=== PATIENT | female | born 1995 | race Caucasian/White ===

== ENCOUNTER 2018-04-01 13:35 | Emergency (ER) | payer SELFPAY ==
[~2018-04-01] VITALS: Ht 157.5 cm; Wt 63.5 kg
[~2018-04-01 13:35] MED LIST: AGM875T PO; CEPH500T PO
[2018-04-01] MEDS ORDERED: KETOROLAC 60 MG/2 ML VIAL IM ONE (14:00)
[2018-04-01] MEDS ORDERED: ORPHENADRINE 60 MG/2 ML (NORFLEX) AMP IM ONE (14:00)
--- NOTE | 2018-04-01 14:03 | ED Hip Pain/Injury ---
General Chief Complaint: Hip/Pelvic Problems Stated Complaint: LT HIP PAIN Nursing Triage Note: PT REPORTS LEFT HIP PAIN FOR SEVERAL MONTHS BUT GOT SEVERE THIS AM AND PAIN HAS NOT WENT AWAY YET. HAS NOT SEEN ANYBODY FOR PAIN. Source: patient Exam Limitations: no limitations History of Present Illness Date Seen by Provider: Apr 01, 2018 Time Seen by Provider: 14:00 Initial Comments 23-year-old female who presents to the emergency room with complaints of left hip pain for 3-4 months that has progressively gotten worse and caused her hip to go out while at work today. She reports she did fall to the ground but denies any other injuries from the fall. She cannot recall an initial injury to the left hip. Reports she has not been evaluated by primary care provider for this issue. Timing/Duration: this morning Location: hip (L) Method of Injury: fell Associated Symptoms: denies symptoms Allergies and Home Medications Allergies Coded Allergies: No Known Drug Allergies (Unverified , 02/11/12) Home Medications Cephalexin 500 Mg Tablet, 500 MG PO TID Prescribed by: DARLIN CHU on 11/10/14 1441 Patient Home Medication List Home Medication List Reviewed: Yes Review of Systems Constitutional: no symptoms reported, see HPI Musculoskeletal: see HPI, joint pain (left hip) All Other Systems Reviewed Negative Unless Noted: Yes Past Gnfeuvk-Xbkego-Xsmxcb Hx Past Med/Social Hx: Reviewed Nursing Past Med/Soc Hx Patient Social History Alcohol Use: Regular Use Alcohol Beverage of Choice: Beer Recreational Drug Use: Yes Drug of Choice: MARIJUANA Smoking Status: Never a Smoker Recent Foreign Travel: No Contact w/Someone Who Travel: No Recent Infectious Disease Expo: No Recent Hopitalizations: No Physical Abuse: No Sexual Abuse: No Immunizations Up To Date Tetanus Booster (TDap): Unknown PED Vaccines UTD: Yes Seasonal Allergies Seasonal Allergies: No Past Medical History Surgeries: Yes (possible cystoscopy as small child) Respiratory: No Cardiac: No Neurological: No Reproductive Disorders: No Sexually Transmitted Disease: No HIV/AIDS: No Gastrointestinal: No Musculoskeletal: No Endocrine: No Cancer: No Psychosocial: No Integumentary: No Blood Disorders: No Adverse Reaction/Blood Tranf: No Family Medical History Reviewed Nursing Family Hx No Pertinent Family Hx Physical Exam Vital Signs Vital Signs - First Documented 04/01/18 13:48 Temp 97.1 Pulse 82 Resp 14 B/P (MAP) 120/78 (92) Pulse Ox 98 Capillary Refill : Less Than 3 Seconds Height, Weight, BMI Height: 5'2.00" Weight: 140lbs. oz. 63.213685if; BMI Method:Stated General Appearance: No Apparent Distress, WD/WN Cardiovascular: Regular Rate, Rhythm, No Edema, No Gallop, No JVD, No Murmur, Normal Peripheral Pulses Respiratory: Chest Non Tender, Lungs Clear, Normal Breath Sounds, No Accessory Muscle Use, No Respiratory Distress, Accessory Muscle Use Extremity: Normal Capillary Refill, Normal Inspection, Non Tender, No Calf Tenderness, No Pedal Edema, Calf Tenderness, Other (increased pain with range of motion of the left hip.) Neurologic/Psychiatric: Alert, Oriented x3, Normal Mood/Affect Skin: Normal Color, Warm/Dry Progress/Results/Core Measures Results/Orders My Orders Orders - SANDRA DE JESUS Ketorolac Injection (Toradol Injection) (04/01/18 14:00) Orphenadrine Injection (Norflex Injectio (04/01/18 14:00) Hip, Left, 2 Views (04/01/18 13:58) Medications Given in ED Current Medications Medications Dose Ordered Sig/Glen Route Start Time Stop Time Status Last Admin Dose Admin Ketorolac Tromethamine 60 mg ONCE ONCE IM 04/01/18 14:00 04/01/18 14:01 DC 04/01/18 14:14 60 MG Orphenadrine Citrate 60 mg ONCE ONCE IM 04/01/18 14:00 04/01/18 14:01 DC 04/01/18 14:14 60 MG Vital Signs/I&O 04/01/18 13:48 Temp 97.1 Pulse 82 Resp 14 B/P (MAP) 120/78 (92) Pulse Ox 98 Blood Pressure Mean: 92 Departure Impression Primary Impression: Left hip pain Disposition: HOME, SELF-CARE Condition: Stable/Unchanged Departure-Patient Inst. Decision time for Depature: 14:32 Referrals: MARU WORRELL JACQUELINE S DO (PCP/Family) Primary Care Physician Patient Instructions: Hip Pain (DC) Add. Discharge Instructions: Take medications as directed. You may alternate ice and heat to the sore areas at 20 minute intervals. Tylenol and ibuprofen as directed by the bottle for pain relief. Follow-up with her primary care provider of your choosing within 1 week for recheck. Call today for an appointment time. All discharge instructions reviewed with patient and/or family. Voiced understanding. Scripts Cyclobenzaprine HCl (Cyclobenzaprine HCl) 10 Mg Tablet 10 MG PO Q8H, #14 TAB Prov: SANDRA DE JESUS 04/01/18 SANDRA DE JESUS Apr 01, 2018 14:03
--- NOTE | 2018-04-01 14:24 | Diagnostic Imaging Report ---
PATIENT HISTORY: Left hip pain. TECHNIQUE: Two views of the left hip. COMPARISON: None. FINDINGS: No acute fracture or dislocation is seen in the left hip. The alignment appears normal. The joint spaces are preserved. No cortical erosion is seen. IMPRESSION: No acute or significant osseous abnormality is seen in the left hip. Dictated by: Dictated on workstation # [id number]
[2018-04-01] MEDS ORDERED: CYCL10TA9 PO (14:41)
[2018-04-01 14:44] VITALS: BP 120/78
== END 2018-04-01 14:44 | disposition home or self-care (01) ==
LOC: EDUNIT# 13:35 → ER 13:37
DX: M25.552 Pain in left hip (principal); F12.10 Cannabis abuse, uncomplicated; W19.XXXA Unspecified fall, initial encounter; Y92.59 Other trade areas as the place of occurrence of the external cause; Y99.0 Civilian activity done for income or pay
CPT/HCPCS: 73502

== ENCOUNTER 2019-06-26 18:42 | Emergency (ER) | payer SELFPAY ==
[~2019-06-26] VITALS: Ht 160 cm; Wt 72.7 kg
[~2019-06-26 18:42] MED LIST changes: +CYCL10TA9 PO
--- NOTE | 2019-06-26 18:56 | ED General ---
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 Spontaneous onset. No history of is no cough no shortness of breath no fever. Pain Is worsened by deep breathing No exogenous estrogen use, no unilateral leg swelling no history of DVT. Timing/Duration: 1-3 Hours Severity: Mild Associated Systoms: Denies Symptoms Allergies and Home Medications Allergies Coded Allergies: No Known Drug Allergies (Unverified , 02/11/12) Home Medications Cephalexin 500 Mg Tablet, 500 MG PO TID Prescribed by: DARLIN CHU on 11/10/14 1441 Cyclobenzaprine HCl 10 Mg Tablet, 10 MG PO Q8H Prescribed by: SANDRA DE JESUS on 04/01/18 1441 Patient Home Medication List Home Medication List Reviewed: Yes Review of Systems Review of Systems Constitutional: see HPI EENTM: see HPI Respiratory: see HPI Cardiovascular: no symptoms reported Genitourinary: no symptoms reported Musculoskeletal: no symptoms reported Skin: no symptoms reported Psychiatric/Neurological: No Symptoms Reported Hematologic/Lymphatic: No Symptoms Reported Past Sfclhib-Xzlxqt-Hghspe Hx Patient Social History Alcohol Beverage of Choice: Beer Drug of Choice: MARIJUANA Recent Foreign Travel: No Contact w/Someone Who Travel: No Recent Infectious Disease Expo: No Recent Hopitalizations: No Immunizations Up To Date Tetanus Booster (TDap): Unknown PED Vaccines UTD: Yes Seasonal Allergies Seasonal Allergies: No Past Medical History Surgeries: Yes (possible cystoscopy as small child) Respiratory: No Cardiac: No Neurological: No Reproductive Disorders: No Sexually Transmitted Disease: No HIV/AIDS: No Gastrointestinal: No Musculoskeletal: No Endocrine: No Cancer: No Psychosocial: No Integumentary: No Blood Disorders: No Adverse Reaction/Blood Tranf: No Family Medical History No Pertinent Family Hx Physical Exam Vital Signs Vital Signs - First Documented 06/26/19 06/26/19 18:50 19:16 Temp 36.8 Pulse 66 Resp 18 B/P (MAP) 128/83 (98) Pulse Ox 100 Capillary Refill : Less Than 3 Seconds Height, Weight, BMI Height: 5'2.00" Weight: 140lbs. oz. 63.803170nd; 28.00 BMI Method:Stated General Appearance: No Apparent Distress, WD/WN Eyes: Bilateral Eye Normal Inspection, Bilateral Eye PERRL, Bilateral Eye EOMI Neck: Full Range of Motion, Normal Inspection Respiratory: Normal Breath Sounds, No Accessory Muscle Use, No Respiratory Distress Cardiovascular: Regular Rate, Rhythm, Normal Peripheral Pulses Gastrointestinal: Normal Bowel Sounds, Non Tender, Soft Extremity: Normal Capillary Refill, Normal Inspection Neurologic/Psychiatric: Alert, Oriented x3 Skin: Normal Color, Warm/Dry Progress/Results/Core Measures Suspected Sepsis Recent Fever Within 48 Hours: No Infection Criteria Present: None New/Unexplained Altered Menta: No Sepsis Screen: No Definite Risk SIRS Temperature: Pulse: 66 Respiratory Rate: 18 Blood Pressure 128 /83 Mean: 98 Results/Orders My Orders Orders - CATALINA BRANDON APRN Chest Pa/Lat (2 View) (06/26/19 18:51) Ibuprofen Tablet (Motrin Tablet) (06/26/19 19:00) Medications Given in ED Current Medications Medications Dose Ordered Sig/Glen Route Start Time Stop Time Status Last Admin Dose Admin Ibuprofen 800 mg ONCE ONCE PO 06/26/19 19:00 06/26/19 19:01 DC 06/26/19 19:11 800 MG Vital Signs/I&O 06/26/19 06/26/19 18:50 19:16 Temp 36.8 36.8 Pulse 66 66 Resp 18 18 B/P (MAP) 128/83 (98) 128/83 (98) Pulse Ox 100 Capillary Refill : Less Than 3 Seconds Blood Pressure Mean: 98 Departure Communication (Admissions) She is without tachycardia or hypoxia Impression Primary Impression: Pleuritic chest pain Disposition: HOME, SELF-CARE Condition: Stable Departure-Patient Inst. Decision time for Depature: 18:56 Referrals: NO,LOCAL PHYSICIAN (PCP/Family) Primary Care Physician Patient Instructions: Pleuritic Chest Pain (DC) Add. Discharge Instructions: 1. Return to ER for any concerns 2. Tylenol and ibuprofen for pain control. All discharge instructions reviewed with patient and/or family. Voiced understanding. CATALINA BRANDON APRN June 26, 2019 18:56
[2019-06-26] MEDS ORDERED: IBUPROFEN 800 MG (MOTRIN) TAB PO ONE (19:00)
--- OUTSIDE RECORDS SUMMARY | 2019-06-26 19:07 | XMS REPORT ---
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 Unavailable Unavailable Unavailable Unavailable Allergies Normalized Allergy Reported Date of Reaction(s) Care Provider Facility Allergy Type classification allergen Allergy Onset DA (7 Unclassified No Known Drug 02-11-2012 - no information POONAM MURRY DO Not Available sources.) Allergies (30433) Medications Medication Ingredient Drug Dose Dates Status Sig Sig Care Class(es) (Normalized) (Original) Provid er cyclobenzap cyclobenzap Muscle 10 mg 04-01-19 Complete take 1 Cyclobenzapr Sandra rine rine Relaxant 19 d tablet by ine Hcl 10 Berno t hydrochlori mouth every Mg Tablet 10 (no de 10 mg eight hours Mg ORAL phone) oral tablet Every 8HRS (1 source.) 14 Tab 04/01/18 Problems Active Problems Problem Normalized Date Last Normalized Normalized Provider Fa cility Classification Problem(s) Recorded Problem Problem Sta tus Duration Abdominal pain Abdominal Episodic Active DARLIN Not Chapis ilable (2 sources.) pain, MD VLAD (14999) unspecified site Other upper Acute Episodic Active POONAM LOVELY , DO Not Av ailable respiratory pharyngitis (99215) infections (4 sources.) Substance-rela Cannabis Chronic Active SANDRA BERNOT Not Available cyndi disorders abuse, (25352) (2 sources.) uncomplicated Other Hip pain Episodic Active MANI [place] Vi a non-traumatic ORENDER [address] [facility] disorders (1 (84093) source.) Other Pain in left Episodic Active SANDRA BERNOT Not A vailable non-traumatic hip (51384) joint disorders (4 sources.) Past or Other Problems Problem Normalized Date Last Normalized Normalized Provider Fa cility Classification Problem(s) Recorded Problem Problem Sta tus Duration External cause Civilian no information no information SANDRA BE RNOT Not Available codes: activity done (58366) Unspecified (2 for income or sources.) pay External cause Other trade no information no information SANDRA BERNYEIMY Not Available codes: Place areas as the (63107) of occurrence place of (2 sources.) occurrence of the external cause External cause Unspecified no information no information SANDRA BERNOT Not Available codes: Fall (2 fall, initial (18885) sources.) encounter Procedures Procedure Normalized Procedure Procedure Result Performer Facility Date 04-01-2018 Radiography of hip no information SANDRA BERNOT As cension [facility] ([address]) Immunizations Normalized Immunization Date Notes Care Provider Facili ty Immunization vaccine no information MANI Sosa V [facility] [employer]: [ [address] [facility] vaccine] (85874) Results The data below is from unstructured sourcesNo relevant diagnostic test, laboratory data and/or discharge summary information available. Vital Signs The data below is from unstructured sources Vital Response Date/Time Temperature (Fahrenheit) 98.4 degree s F (97.6 - 99.5) 11/10/2014 1:40pm Temperature Source Temporal 11/10/2014 1:40pm Pulse Rate (Adolescent 12-19yrs) 78 bpm (56 - 106) 11/10/2014 1:40pm Respiratory Rate (Adolescent 12-19yrs) 20 bpm (15 - 20) 11/10/2014 1:40pm Blood Pressure / Blood Pressure Systolic (Adolescent 12-19yrs) 115 mm Hg (115 - 120) 11/10/2014 1:40pm Pain Pain Intensity 6 2014 1:40pm Height (Feet) 5 feet 1:40pm Height (Inches) 1 inches 11/10/2014 1:40pm Height (Calculated Centimeters) 154. 721355 cm 11/10/2014 1:40pm Weight (Pounds) 140 pounds 11/10/2014 1:40pm Weight (Calculated Grams) 45430.378 gm 11/10/2014 1:40pm Weight (Calculated Kilograms) 63.502 932 kilograms 11/10/2014 1:40pm Calculated BMI 26.45 1:40pm Vital Response Date/Time Temperature (Fahrenheit) 99.5 degree s F (97.6 - 99.5) Temperature Source Temporal Pulse Rate (Adolescent 12-19yrs) 121 bpm (56 - 106) Respiratory Rate (Adolescent 12-19yrs) 18 bpm (15 - 20) Blood Pressure / Blood Pressure Systolic (Adolescent 12-19yrs) 118 mm Hg (115 - 120) Pain Pain Intensity 5 Height (Feet) 5 feet Height (Inches) 1 inches Height (Calculated Centimeters) 154. 237340 cm Weight (Pounds) 134 pounds Weight (Calculated Kilograms) 60.781 378 kilograms Calculated BMI 25.32 Vital Response Date/Time Temperature (Fahrenheit) 97.1 degree s F (97.6 - 99.5) 04/01/2018 1:48pm Temperature (Calculated Celsius) 36. 69781 degrees C (36.4 - 37.5) 04/01/2018 1:48pm Pulse Rate (adult) 82 bpm (60 - 90) 04/01/2018 1:48pm Respiratory Rate 14 bpm (12 - 24) 04/01/2018 1:48pm O2 Sat by Pulse Oximetry 98 % (88 - 100) 04/01/2018 1:48pm Blood Pressure 120/78 mm Hg 04/01/2018 1:48pm Blood Pressure Mean 92 mm Hg (65 - 110) 04/01/2018 1:48pm Pain Numeric Pain Scale 7 2:14pm Height (Feet) 5 feet 01/2019 1:48pm Height (Inches) 2.00 inches 04/01/2018 1:48pm Height (Calculated Centimeters) 157. 652895 cm 04/01/2018 1:48pm Height Method Stated 01/2019 1:48pm Weight (Pounds) 140 pounds 04/01/2018 1:48pm Weight (Calculated Grams) 29390.93 gm 04/01/2018 1:48pm Weight (Calculated Kilograms) 63.502 932 kilograms 04/01/2018 1:48pm Weight Method Stated 01/2019 1:48pm Capillary Refill Capillary Refill Less Than 3 Seconds 04/01/2018 1:48pm Height 5 ft 2 in 2 019 1:48pm Weight 140 lb 04/01/2018 1:48pm Body Mass Index 25.6 kg/m^2 04/01/2018 1:48pm Vital Response Date/Time Temperature (Fahrenheit) 97.1 degree s F (97.6 - 99.5) 04/01/2018 1:48pm Temperature (Calculated Celsius) 36. 26429 degrees C (36.4 - 37.5) 04/01/2018 1:48pm Pulse Rate (adult) 82 bpm (60 - 90) 04/01/2018 1:48pm Respiratory Rate 14 bpm (12 - 24) 04/01/2018 1:48pm O2 Sat by Pulse Oximetry 98 % (88 - 100) 04/01/2018 1:48pm Blood Pressure 120/78 mm Hg 04/01/2018 1:48pm Blood Pressure Mean 92 mm Hg (65 - 110) 04/01/2018 1:48pm Pain Numeric Pain Scale 7 2:14pm Height (Feet) 5 feet 01/2019 1:48pm Height (Inches) 2.00 inches 04/01/2018 1:48pm Height (Calculated Centimeters) 157. 228281 cm 04/01/2018 1:48pm Height Method Stated 01/2019 1:48pm Weight (Pounds) 140 pounds 04/01/2018 1:48pm Weight (Calculated Grams) 40231.93 gm 04/01/2018 1:48pm Weight (Calculated Kilograms) 63.502 932 kilograms 04/01/2018 1:48pm Weight Method Stated 01/2019 1:48pm Capillary Refill Capillary Refill Less Than 3 Seconds 04/01/2018 1:48pm Height 5 ft 2 in 019 1:48pm Weight 140 lb 04/01/2018 1:48pm Body Mass Index 25.6 kg/m^2 04/01/2018 1:48pm Interventions No Information Plan of Treatment The data below is from unstructured sources Discharge Date 11/10/14 2:47pm Disposition 01 HOME, SELF-CARE Condition at Discharge Improved Instructions/Education Provided Selvin china Tract Infection in Women (ED) Prescriptions See Medication Section Referrals MANI WISDOM DO - Primary Care Physician Additional Instructions/Education Al l discharge instructions reviewed with patient and/or family. Voiced understanding. Take medications as directed. You may take ibuprofen, 400 or 600 mg every 8 hours as needed for pain. You may take Tylenol, 1000 mg every 8 hours as needed for pain. Drink plenty of fluids. Follow-up with your Dr. in a few days for recheck if not improved. Return for worse pain, fever, vomiting, breathing problems or other concerns as needed. Discharge Date 04/01/18 2:44pm Disposition 01 HOME, SELF-CARE Condition at Discharge Stable/Unchan ged Instructions/Education Provided Hip Pain (DC) Prescriptions See Medication Section Referrals MARU WORRELL DO Address: [address] [place] [address] MANI WISDOM DO Order Date: Primary Care Physician Address: [address] [place] [address] Note: MANI WISDOM DO Order Date: Primary Care Physician Address: [address] [place] [address] Note: Additional Instructions/Education Ta ke medications as directed. You may alternate ice and heat to the sore areas at 20 minute intervals. Tylenol and ibuprofen as directed by the bottle for pain relief. Follow-up with her primary care provider of your choosing within 1 week for recheck. Call today for an appointment time. All discharge instructions reviewed with patient and/or family. Voiced understanding. Discharge Date 04/01/18 2:44pm Disposition 01 HOME, SELF-CARE Condition at Discharge Stable/Unchan ged Instructions/Education Provided Hip Pain (DC) Prescriptions See Medication Section Referrals MARU WORRELL DO Address: [address] [place], [place] [id number] MANI WISDOM DO Order Date: Primary Care Physician Address: [address] [place], [place] [address] Note: MANI WISDOM DO Order Date: Primary Care Physician Address: [address] [place], [place] [address] Note: Additional Instructions/Education Ta ke medications as directed. You may alternate ice and heat to the sore areas at 20 minute intervals. Tylenol and ibuprofen as directed by the bottle for pain relief. Follow-up with her primary care provider of your choosing within 1 week for recheck. Call today for an appointment time. All discharge instructions reviewed with patient and/or family. Voiced understanding. Goals No Information Social History No Information Functional Status The data below is from unstructured sourcesNo functional status results.No functional status results.No functional status results.No functional status information available.No functional status information available. Mental Status No Information Encounters Encounter Normalized Encounter Encounter Diagnosis Care Provi gilmar Organization Date Type 04-01-2018 Emergency department no information SANDRA DE JESUS ( no no organization name - patient visit phone) 04-01-2018 03-17-2014 Emergency department no information no name no organization name - patient visit 03-18-2014 04-01-2018 Patient encounter no information no name no or ganization name procedure Medical Equipment No Information Payers Normalized Payer Value Self-pay no information ([id number]) Advance Directives Directive Response Recor ded Date/Time Advance Directives No 1:40pm Health Care Power of Valve Fitter No 11/10/14 1:40pm Organ Donor No 11/10/14 1:40pm Resuscitation Status Full Code 11/10/14 1:40pm Directive Response Recor ded Date/Time Advance Directives No 10:37pm Health Care Power of Valve Fitter No 03/17/14 10:37pm Organ Donor No 03/17/14 10:37pm Resuscitation Status Full Code 03/17/14 10:37pm Directive Response Recor ded Date/Time Advance Directives No 1:48pm Health Care Power of Valve Fitter No 04/01/18 1:48pm Organ Donor No 04/01/18 1:48pm Resuscitation Status Full Code 04/01/18 1:48pm Discharge Instructions No hospital discharge instructions.No hospital discharge instructions.No hospital discharge instruction information available. Chief Complaint and Reason for Visit Chief Complaint Hip/Pelvic Problems Reason for Visit Left hip pain Additional Source Comments This clinical document has been generated using [employer] software that has been certified by the Office of the National Coordinator for Health Information Technology (ONC 15.99.04.3023.Diam.31.00.0.056891) and the National Committee for Maturity Checker (NCQA, as an eMeasure certified technology). FOR RECORDS PERTAINING TO PATIENTS WHO ARE OR HAVE BEEN ENROLLED IN A CHEMICAL D EPENDENCY/SUBSTANCE ABUSE PROGRAM, SOME INFORMATION MAY BE OMITTED. This clinica l summary was aggregated from multiple sources. Caution should be exercised in using it in the provision of clinical care. This summary normalizes information from multiple sources, and as a consequence, information in this document may ma terially change the coding, format and clinical context of patient data. In traci tion, data may be omitted in some cases. CLINICAL DECISIONS SHOULD BE BASED ON T HE PRIMARY CLINICAL RECORDS. [employer] [facility]. provides no warranty or guara ntee of the accuracy or completeness of information in this document.The followi ng information is based on time limited clinical information
--- OUTSIDE RECORDS SUMMARY | 2019-06-26 19:07 | XMS REPORT | Continuity of Care Document ---
Author Organization Unknown Address Unknown Phone Unavailable Allergies Active Description Code Type Severity Reaction Onset Reported/Identified Relationship to Patient Clinical Status Yes No Known Drug Allergies [id number] Drug Allergy Unknown N/A 02/11/2012 Medications There is no data. 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 FITTER Ot 719.44 03/17/2014 VANALLIELAEMANOJ CORNELL M SHIP FITTER Ot 959.4 03/17/2014 VANBECELAERE CORNELL M SHIP FITTER Ot E000.8 03/17/2014 VANBECELAERE CORNELL M SHIP FITTER Ot E849.6 03/17/2014 VANBECELAERE CORNELL M SHIP FITTER Ot E888.9 03/17/2014 POONAM MURRY DO Ot 462 ACUTE PHARYNGITIS 10/13/2014 Ot 719.47 10/13/2014 Ot 729.5 11/10/2014 DARLIN CHU MD Ot 599.0 URIN TRACT INFECTION NOS 11/10/2014 DARLIN CHU MD Ot 789.00 ABDOMINAL PAIN, UNSPECIFIED SITE 04/01/2018 SANDRA DE JESUS Ot F12.10 CANNABIS ABUSE, UNCOMPLICATED 04/01/2018 SANDRA DE JESUS Ot M25.552 PAIN IN LEFT HIP 04/01/2018 SANDRA DE JESUS Ot W19.XXXA UNSPECIFIED FALL, INITIAL ENCOUNTER 04/01/2018 SANDRA DE JESUS Ot Y92.[address] 04/01/2018 SANDRA DE JESUS Ot Y99.0 CIVILIAN ACTIVITY DONE FOR INCOME OR PAY 04/03/2018 SANDRA DE JESUS Ot F12.10 CANNABIS ABUSE, UNCOMPLICATED 04/03/2018 SANDRA DE JESUS Ot M25.552 PAIN IN LEFT HIP 04/03/2018 SANDRA DE JESUS Ot W19.XXXA UNSPECIFIED FALL, INITIAL ENCOUNTER 04/03/2018 SANDRA DE JESUS Ot Y92.[address] 04/03/2018 SANDRA DE JESUS Ot Y99.0 CIVILIAN ACTIVITY DONE FOR INCOME OR PAY Procedures There is no data. Results There is no data. Encounters ACCT No. Visit Date/Time Discharge Status Pt. Type Provider Facility Loc./Unit Complaint [id number] 04/01/2018 13:37:00 019 14:44:00 DIS Emergency SANDRA DE JESUS Via [facility] ER LT HIP PAIN [id number] 11/10/2014 13:26:00 015 14:47:00 DIS Emergency DARLIN CHU MD Via [facility] ER LEFT SIDE PAIN [id number] 03/17/2014 22:30:00 015 23:10:00 DIS Emergency POONAM MURRY DO a [facility] ER SORE THROAT [id number] 12/24/2012 10:07:00 013 23:59:59 CLS Outpatient CORNELL CUNNINGHAM Via [facility] RAD [id number] 06/26/2019 18:43:[address] Emergency CATALINA BRANDON APRN Via [facility] ER PAIN UNDER L SHOULDER BLADE [id number] 02/11/2012 21:16:00 Document Registration [id number] 10/30/2010 09:41:00 Document Registration [id number] 05/03/2010 17:02:00 Document Registration
--- NOTE | 2019-06-26 19:11 | Diagnostic Imaging Report ---
EXAM: CHEST PA/LAT (2 VIEW) INDICATION: Left shoulder pain. COMPARISON: None. FINDINGS: Normal heart size and pulmonary vascularity. No dense consolidation, pleural effusion or pneumothorax. No acute osseous findings. IMPRESSION: No acute cardiopulmonary findings. Dictated by: Dictated on workstation # [id number]
[2019-06-26 19:16] VITALS: BP 128/83
== END 2019-06-26 19:16 | disposition home or self-care (01) ==
LOC: EDUNIT# 18:42 → ER 18:43
DX: R07.81 Pleurodynia (principal)
CPT/HCPCS: 71046